=== PATIENT | female | born 1980 | race Caucasian/White ===

== ENCOUNTER → 2017-04-21 | Outpatient (CLI) | payer BC, OTHER ==
[~2017-04-21] MED LIST: ACETA; ACETAMINOPHEN325 M1 PO; AMBEREN PO; ANASPAZ0.125 MG SL; ATIVAN0.5 MG PO; BENTYL; BENZONATATE200 MG PO; COMPAZINE5 MG PO; CREON 10 CAPSUL1 CA1 PO; CREON PO; CYCLOBENZAPRINE10 MG PO; DARVOCET-N 1001 EACH PO; DEPO-PROVERA; DILAUDID 2 MG TA2 MG PO; DILAUDID2 M1 PO; FENTANYL PA12 MCG/HR TD; FENTANYL PA25 MCG/HR TOP; FLONASE NS; FLONASE16 GM NASAL; HYOSCYAMINE0.15 MG PO; IBUPROFEN; KAPVAY0.1 MG PO; LEVSIN; LO LOESTRIN FE1 EACH PO; LOESTRIN 24 FE1 EACH PO; MELATONIN1 MG PO; METOCLOPRAMIDE 55 M1 PO; MUCINEX600 MG PO; MULTIVITAMINS PO; MULTIVITAMINS1 EAC7 PO; NEURONTIN 300300 M1 PO; NEXIUM; NORTRIPTYLINE H50 M3 PO; ONDANSETRON ODT8 MG PO; PERCOCET 10-321 EACH PO; PHENERGAN 25 MG25 M1 PO; PREDNISONE 10 M10 M1 PO; PRILOSEC40 MG PO; PROAIR HFA8.5 GM; PROBIOTIC1 EAC1 PO; PROCHLORPERAZINE5 M1 PO; PROTONIX40 M2 PO; PROZAC 20 MG20 M1 PO; REGLAN 10 MG TA10 MG PO; REGLAN 5 MG TAB5 M1 PO; SENNA S TABLET1 EACH; SUBOXONE 2 MG-1 EACH SL; SYMBICORT160 MCG/4. INH; TRANSDERM-SCO1 PATC1 TOP; VALIUM5 MG PO; VALTREX 500 MG500 MG PO; VITAMIN C 250250 MG PO; VITAMINC500 PO; XOPENEX0.31 MG/3; ZOFRAN4 MG PO; ZYRTEC 10 MG TA10 MG PO; ZYRTEC10 M2; ZYRTEC10 M2 PO; [UNRECOGNIZED DRUG - OTHER]; [UNRECOGNIZED DRUG - OTHER]; [UNRECOGNIZED DRUG - OTHER] PO
== END ==
LOC: RAD 15:46
DX: M25.511 Pain in right shoulder (principal)

== ENCOUNTER → 2020-03-07 | Outpatient (CLI) | payer BC, OTHER | LOC: CAT 11:13 | PROVIDERS: ATTEND Specialist | DX: U07.1 COVID-19 (principal); J12.82 Pneumonia due to coronavirus disease 2019 ==

== ENCOUNTER → 2020-06-04 | Outpatient (CLI) | payer BC, OTHER | LOC: LAB 10:31 | PROVIDERS: ATTEND Internal Medicine | DX: Z01.812 Encounter for preprocedural laboratory examination (principal); Z20.822 Contact with and (suspected) exposure to COVID-19 ==

== ENCOUNTER → 2020-06-05 | Outpatient (CLI) | payer BC, OTHER ==
[~2020-06-05] MED LIST changes: +HALDOL5 MG/1 ML PO
--- NOTE | 2020-06-22 07:50 | PFR/MVV ---
[facility] [place] [address] PULMONARY FUNCTION MVV/REPORT Name: ESTIVEN VAZQUEZ Room #: REG [facility].#: [id number] Admission: 06/05/20 Attend Phys: Loyd Loya MD Discharge: Date of : 82 Report #: [id number] THIS REPORT FOR: //name// COPIES FOR: AGE: 40 SEX/RACE: F/C >> SPIROMETRY: (BTPS) Height: 63 in cm Weight: 133 lbs kg Exam Date: 06/05/20 PRE-RX POST-RX PRED BEST %PRED BEST %PRED %CHG FVC LITERS . 3.46 . 3.62 . 105 . 3.67 . 106 . 1 FEV1 LITERS . 2.70 . 2.95 . 109 . 3.08 . 114 . 5 FEV1/FVC % . 77 . 81 . 105 . 84 . 109 . 3 AGI85-32% L/Sec . 3.16 . 3.01 . 95 . 3.40 . 107 . 13 PEF L/SEC . 6.13 . 6.25 . 102 . 5.96 . 967 . -5 FEF50/FIF50 UNITLESS . <1.00 . 2.57 . . 1.68 . . -35 MVV L/Min . 108 . 32 . 30 f 1/Min . . 175 . >> LUNG VOLUMES: (BTPS) PRE-RX POST-RX PRED AVG %PRED AVG %PRED %CHG VC Liters . 3.46 . 3.62 . 105 . . . TLC Liters . 4.86 . 4.58 . 94 . . . RV Liters . 1.57 . 0.96 . 61 . . . RV/TLC % . 32 . 21 . 66 . . . FRC PL Liters . 2.74 . 1.96 . 72 . . . FRC N2 Liters . 2.74 . . . . . ERV Liters . 1.13 . 1.00 . 89 . . . IC Liters . 2.26 . 2.40 . 106 . . . >> DIFFUSION: DLCO ml/Min/mmHg . 21.1 . 23.5 . 111 . . . DL Kati ml/Min/mmHg . 21.1 . 23.52 . 111 . . . DLCO/VA ml/Min/mmHg . 4.29 . 5.04 . 117 . . . VA Liters . . 4.67 . . . . [address] [address] PULMONARY FUNCTION MVV/REPORT Name: CRISTINASUZIEESTIVEN MCMANUS Room #: REG Riri Nassar#: [id number] Admission: 06/05/20 Attend Phys: Loyd Loya MD Discharge: Date of : 82 Report #: [id number] COMMENTS: COMMENTS: >> RESISTANCE: PRE-RX PRED AVG %PRED Raw Total cmH20/L/Sec . . 2.67 . Raw Insp cmH20/L/Sec . . 0.63 . Raw Exp cmH20/L/Sec . . 1.74 . Raw cmH20/L/Sec . 1.40 . 1.35 . 97 Gaw L/Sec/cmH20 . 0.657 . 0.741 . 113 sRaw cmH20 Sec . 3.83 . 3.81 . 100 sGaw l/cmH20 Sec . 0.261 . 0.262 . 100 Vtq Liters . . 2.82 . # = OUTSIDE 95% CONFIDENCE INTERVAL CALIBRATION: PRED: 3.00 ACTUAL: EXP 3.01 INSP 3.02 [facility]-[address] [place] [address] N-1804-4 >> INTERPRETATION/IMPRESSION: DATE OF SERVICE: 06/05/2020 ATTENDING PHYSICIAN: Dr. Matt Calvert. SPIROMETRY: FEV1 is 2.95 (109%), FVC is 3.62 liters (105%). FEV1/FVC ratio is 81%. Postbronchodilator therapies with no significant response. LUNG VOLUMES: Total lung capacity is 4.58 liters (94%). RV is 0.96 liters (61%). Diffusing capacity is 111%. IMPRESSION: Pulmonary function studies are consistent with a normal pulmonary function. <ELECTRONICALLY SIGNED> By: Corky Marquez MD 06/22/20 0750 Corky Marquez MD /nt
--- NOTE | 2020-06-22 07:50 | PFR/MVV ---
[facility] [place] [address] PULMONARY FUNCTION MVV/REPORT Name: ESTIVEN VAZQUEZ Room #: REG [facility].#: [id number] Admission: 06/05/20 Attend Phys: Loyd Loya MD Discharge: Date of : 82 Report #: [id number] THIS REPORT FOR: //name// >> SPIROMETRY: (BTPS) Height: in cm Weight: lbs kg Exam Date: PRE-RX POST-RX PRED BEST %PRED BEST %PRED %CHG FVC LITERS . . . . . . FEV1 LITERS . . . . . . FEV1/FVC % . . . . . . NVJ59-89% L/Sec . . . . . . PEF L/SEC . . . . . . FEF50/FIF50 UNITLESS . . . . . . MVV L/Min . . . f 1/Min . . . >> LUNG VOLUMES: (BTPS) PRE-RX POST-RX PRED AVG %PRED AVG %PRED %CHG VC Liters . . . . . . TLC Liters . . . . . . RV Liters . . . . . . RV/TLC % . . . . . . FRC PL Liters . . . . . . FRC N2 Liters . . . . . . ERV Liters . . . . . . IC Liters . . . . . . >> DIFFUSION: DLCO ml/Min/mmHg . . . . . . DL Kati ml/Min/mmHg . . . . . . DLCO/VA ml/Min/mmHg . . . . . . VA Liters . . . . . . COMMENTS: COMMENTS: >> RESISTANCE: [facility] [address] [place] [address] PULMONARY FUNCTION MVV/REPORT Name: CRISTINASUZIEESTIVEN MCMANUSAN Room #: REG [facility] LopezDanis#: [id number] Admission: 06/05/20 Attend Phys: Loyd Loya MD Discharge: Date of : 82 Report #: [id number] PRE-RX PRED AVG %PRED Raw Total cmH20/L/Sec . . . Raw Insp cmH20/L/Sec . . . Raw Exp cmH20/L/Sec . . . Raw cmH20/L/Sec . . . Gaw L/Sec/cmH20 . . . sRaw cmH20 Sec . . . sGaw l/cmH20 Sec . . . Vtq Liters . . . # = OUTSIDE 95% CONFIDENCE INTERVAL CALIBRATION: PRED: 3.00 ACTUAL: EXP 3.01 INSP 3.02 [facility] N-1804-4 >> INTERPRETATION/IMPRESSION: DATE OF SERVICE: 06/05/2020 METHACHOLINE CHALLENGE TEST ATTENDING PHYSICIAN: Dr. Matt Calvert. Methacholine challenge test was completed in routine fashion. FEV1 baseline is 2.95 liters (109%). With increasing doses of methacholine FEV1 did decrease to 2.09 liters (78% predicted) of which is a 33% change. Following administration of bronchodilator therapy there was significant adequate response. IMPRESSION: Positive methacholine challenge test. <ELECTRONICALLY SIGNED> By: Corky Marquez MD 06/22/20 0750 Corky Marquez MD /nt
== END ==
LOC: PUL 11:21
PROVIDERS: ATTEND Internal Medicine
DX: R06.00 Dyspnea, unspecified (principal)

== ENCOUNTER 2020-07-10 23:28 | Inpatient (IN) | payer BC, OTHER ==
[~2020-07-10] VITALS: Ht 160 cm; Wt 60.3 kg
[~2020-07-10 23:28] MED LIST changes: -HALDOL5 MG/1 ML PO
[2020-07-10 23:55] VITALS: BP 133/88
[2020-07-11 00:59] VITALS: BP 125/76
[2020-07-11 01:09] VITALS: BP 110/61
[2020-07-11 01:25] VITALS: BP 110/65
[2020-07-11 07:05] VITALS: BP 124/82
[2020-07-11] MEDS ORDERED: HALDOL5 MG/1 ML PO (08:01)
--- NOTE | 2020-07-11 09:04 | EKG ---
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: FSCHWALBE : 1980 Requested By: Matt Calvert Order Number: [id number] MD: Victorino Petty Measurements Intervals [place] Rate: 64 P: 59 AK: 212 QRS: 52 QRSD: 80 T: 14 QT: 412 QTc: 425 Interpretive Statements Sinus rhythm Prolonged AK interval Compared to ECG 07/26/2010 09:10:10 First degree AV block now present Sinus tachycardia no longer present Electronically Signed On 07-11-2020 9:04:34 CDT by Victorino Petty [email or web address] <ELECTRONICALLY SIGNED> By: Victorino Petty MD, [facility] 07/11/20903 9 9 Victorino Petty MD, [facility] /EPI
[2020-07-11 09:26] LABS: HEMATOCRIT 39.4 % (37.0-47.0); HEMOGLOBIN 13.2 gm/dL (12.0-15.0); MCH 32.4 pg (26.0-34.0); MCHC 33.5 g/dL (28.0-37.0); MCV 96.7 fL (80.0-100.0); RBC 4.07 mil/uL (4.20-5.00); RDW 12.5 % (10.5-14.5); WBC 7.7 thou/uL (4.0-11.0)
[2020-07-11 09:53] LABS: CREATININE 0.9 mg/dL (0.6-1.0); POTASSIUM 3.6 mmol/L (3.5-5.1)
[2020-07-11 11:38] LABS: URINE BILIRUBIN NEGATIVE (Negative); URINE BLOOD NEGATIVE (Negative); URINE CLARITY CLEAR; URINE COLOR YELLOW; URINE GLUCOSE-RANDOM* NEGATIVE (Negative); URINE KETONES NEGATIVE (Negative); URINE LEUKOCYTES-REFLEX NEGATIVE (Negative); URINE NITRITE-REFLEX NEGATIVE (Negative); URINE PROTEIN (DIPSTICK) NEGATIVE (Negative); URINE UROBILINOGEN 0.2 E.U./dl (0.2-1.0)
[2020-07-11 12:17] VITALS: BP 124/82
== END 2020-07-11 13:55 | disposition home or self-care (01) | DRG 392 ==
LOC: ER 23:28 → 4W 07-11 00:53 → EROBS 07-11 00:53 → 4W 07-11 01:33
PROVIDERS: ADMIT Family Medicine; ATTEND Family Medicine
DX: R10.9 Unspecified abdominal pain (principal); Z88.6 Allergy status to analgesic agent; G43.D0 Abdominal migraine, not intractable; Z88.8 Allergy status to other drugs, medicaments and biological substances
CPT/HCPCS: 10040

== ENCOUNTER 2020-09-17 14:29 | Emergency (ER) | payer BC, OTHER ==
[~2020-09-17] VITALS: Ht 160 cm; Wt 59.0 kg
[~2020-09-17 14:29] MED LIST changes: +HALDOL5 MG/1 ML PO
[2020-09-17 16:35] LABS: ABSOLUTE NEUTROPHILS 5.9 thou/uL (1.4-8.2); BASOPHILS 1.1 % (0.0-2.0); EOSINOPHILS 1.7 % (0.0-3.0); HEMATOCRIT 40.4 % (37.0-47.0); HEMOGLOBIN 14.2 gm/dL (12.0-15.0); LYMPHOCYTES 24.8 % (24.0-44.0); MCH 33.6 pg (26.0-34.0); MCHC 35.2 g/dL (28.0-37.0); MCV 95.4 fL (80.0-100.0); PLATELET COUNT 307 thou/uL (150-400); POLYS 61.4 % (36.0-66.0); RBC 4.24 mil/uL (4.20-5.00); RDW 12.8 % (10.5-14.5); WBC 9.6 thou/uL (4.0-11.0)
[2020-09-17 16:39] LABS: ANION GAP 7 mmol/L (7-16); BUN 14 mg/dL (7-18); CALCIUM 8.9 mg/dL (8.5-10.1); CHLORIDE 104 mmol/L (98-107); CO2 27 mmol/L (21-32); GLUCOSE 97 mg/dL (74-106); POTASSIUM 4.1 mmol/L (3.5-5.1); SODIUM 138 mmol/L (136-145)
[2020-09-17 16:49] LABS: ALBUMIN 4.1 g/dL (3.4-5.0); SGOT 23 U/L (15-37); SGPT 19 U/L (30-65); TOTAL BILIRUBIN 0.2 mg/dL (0.2-1.0); TOTAL PROTEIN 7.7 g/dL (6.4-8.2); TROPONIN-I <0.06 ng/mL (<0.06)
[2020-09-17] MEDS ORDERED: MOBIC7.5 MG PO (17:43)
[2020-09-17 18:04] VITALS: BP 117/69
--- NOTE | 2020-09-18 07:15 | EKG ---
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1980 Requested By: Sebastian Nuñez Order Number: [id number] MD: Victorino Petty Measurements Intervals [place] Rate: 93 P: 57 ME: 168 QRS: 56 QRSD: 80 T: 14 QT: 350 QTc: 436 Interpretive Statements Sinus rhythm Probable left atrial enlargement Compared to ECG 07/11/2020 08:30:46 First degree AV block no longer present Electronically Signed On 09-18-2020 7:15:30 CDT by Victorino Petty [email or web address] <ELECTRONICALLY SIGNED> By: Victorino Petty MD, [facility] 09/18/20 0715 [facility]4 143 Victorino Petty MD, FAC /EPI
[2020-09-22] MEDS ORDERED: MELOXICAM7.5 MG PO (13:28)
[2020-09-22] MEDS ORDERED: TOPAMAX100 MG PO (13:30)
[2020-09-22] MEDS ORDERED: CLONAZEPAM 0.50.5 M1 PO (13:31)
[2020-09-22] MEDS ORDERED: SEROQUEL200 MG PO (13:45)
[2020-09-22] MEDS ORDERED: TORADOL 10 MG T10 MG PO (13:46)
== END 2020-09-17 18:04 | disposition home or self-care (01) ==
LOC: ER 14:29
PROVIDERS: Nurse Practitioner
DX: M94.0 Chondrocostal junction syndrome [Tietze] (principal); Z98.890 Other specified postprocedural states; Z88.8 Allergy status to other drugs, medicaments and biological substances

== ENCOUNTER → 2020-09-19 | Outpatient (CLI) | payer BC, OTHER ==
[~2020-09-19] MED LIST changes: +CLONAZEPAM 0.50.5 M1 PO; +MELOXICAM7.5 MG PO; +MOBIC7.5 MG PO; +SEROQUEL200 MG PO; +TOPAMAX100 MG PO; +TORADOL 10 MG T10 MG PO
== END ==
LOC: SJCVCIMAG 10:49
PROVIDERS: ATTEND Internal Medicine
DX: R00.2 Palpitations (principal); R00.0 Tachycardia, unspecified; R53.83 Other fatigue; R07.9 Chest pain, unspecified

== ENCOUNTER → 2020-09-22 | Outpatient (CLI) | payer BC, OTHER ==
[~2020-09-22] VITALS: Ht 160 cm; Wt 59.0 kg
[2020-09-22 13:25] VITALS: BP 109/74
--- NOTE | 2020-09-22 13:51 | NUR ---
Pain Clinic Assessment: 1. History of Osteoarthritis: Not Applicable History of Rheumatoid Arthritis: Not Applicable 2. Height: 5 ft. 3 in. 160.0 cm. Weight: 130.0 lb. oz. 58.968 kg. Patient's BMI: 23.0 3. Vital Signs: BP: 109/74 Pulse: 66 Resp: 14 Temp: 02 Sat: 100 ECG Mon: 4. Pain Intensity: 10 5. Fall Risk: Dizziness: Y Needs help standing or walking: Y Fallen in the last 3 months: N Fall risk comments: 6. Patient on Blood Thinner: None 7. History of Hypertension: N 8. Opioid Therapy greater than 6 weeks: Opiate Contract Signed: 9. Risk Assessment Tool Provided: 7 MODERATE RISK 10. Functional Assessment Tool: 61/70 11. Recreational Drug Use: Never Drug Type: Tobacco Use: Never Smoker Tobacco Type: Amount or Packs/day: How Many Years: Alcohol Use: No Frequency: Quant:
== END ==
LOC: PAIN 12:02
PROVIDERS: ATTEND Anesthesiology Pain Medicine
DX: R07.89 Other chest pain (principal); G43.909 Migraine, unspecified, not intractable, without status migrainosus; Z86.16 Personal history of COVID-19; Z90.710 Acquired absence of both cervix and uterus; Z79.899 Other long term (current) drug therapy; Z79.891 Long term (current) use of opiate analgesic; Z88.5 Allergy status to narcotic agent; Z88.8 Allergy status to other drugs, medicaments and biological substances

== ENCOUNTER → 2020-10-20 | Outpatient (CLI) | payer BC, OTHER | LOC: CAT 15:11 | PROVIDERS: ATTEND Internal Medicine | DX: R07.81 Pleurodynia (principal); R79.89 Other specified abnormal findings of blood chemistry; R07.1 Chest pain on breathing ==

== ENCOUNTER → 2020-10-30 | Outpatient (CLI) | payer BC, OTHER ==
[~2020-10-30] VITALS: Ht 160 cm; Wt 59.4 kg
[2020-10-30 11:16] VITALS: BP 126/91
--- NOTE | 2020-10-30 11:28 | NUR ---
Pain Clinic Assessment: 1. History of Osteoarthritis: Not Applicable History of Rheumatoid Arthritis: Not Applicable 2. Height: 5 ft. 3 in. 160.0 cm. Weight: 131.0 lb. oz. 59.421 kg. Patient's BMI: 23.2 3. Vital Signs: BP: 126/91 Pulse: 80 Resp: 14 Temp: 02 Sat: 100 ECG Mon: 4. Pain Intensity: 9 5. Fall Risk: Dizziness: N Needs help standing or walking: N Fallen in the last 3 months: N Fall risk comments: 6. Patient on Blood Thinner: None 7. History of Hypertension: N 8. Opioid Therapy greater than 6 weeks: N Opiate Contract Signed: 9. Risk Assessment Tool Provided: 7 MODERATE RISK 10. Functional Assessment Tool: 61/70 11. Recreational Drug Use: Never Drug Type: Tobacco Use: Never Smoker Tobacco Type: Amount or Packs/day: How Many Years: Alcohol Use: No Frequency: Quant:
== END | disposition home or self-care (01) ==
LOC: PAIN 09-29 09:46
PROVIDERS: ATTEND Anesthesiology Pain Medicine
DX: M94.0 Chondrocostal junction syndrome [Tietze] (principal); R07.9 Chest pain, unspecified; Z98.890 Other specified postprocedural states; Z79.899 Other long term (current) drug therapy; Z88.8 Allergy status to other drugs, medicaments and biological substances